=== PATIENT | female | born 1940 | race African-American/Black ===

== ENCOUNTER → 2016-06-07 | Outpatient (CLI) | payer BC ==
--- NOTE | 2016-06-07 09:52 | KCIC ---
PROCEDURE DEXA. HISTORY Postmenopausal screening. COMPARISON None. FINDINGS BMD: (g/cm2) - AP Spine Total (L1-L4): 1.168 - Total left Hip: 0.975 T-Score: - AP Spine Total (L1-L4): 1.1 - Total left Hip: 0.3 Z-Score: - AP Spine Total (L1-L4): 2.7 - Total left Hip: 0.9 World Health Organization criteria for BMD interpretation classify patients as Normal (T-score at or above -1.0), Osteopenic (T-score between -1.0 and -2.5), or Osteoporotic (T-score at or below -2.5). IMPRESSION Normal bone mineral density in the left hip and spine. Electronically signed by: Jose Johnson MD (Jun 07, 2016 09:50:56)
== END | disposition home or self-care (01) ==
LOC: KCIC DEXA 08:38
PROVIDERS: ATTEND Family Medicine
DX: M85.88 Other specified disorders of bone density and structure, other site (principal); Z78.0 Asymptomatic menopausal state
CPT/HCPCS: 77080

== ENCOUNTER → 2016-06-11 | Outpatient (CLI) | payer BC | END | disposition home or self-care (01) | LOC: KCIC MAMMO 08:22 | PROVIDERS: ATTEND Family Medicine | DX: Z12.31 Encounter for screening mammogram for malignant neoplasm of breast (principal) | CPT/HCPCS: G0202; 77067 ==

== ENCOUNTER → 2016-07-03 | Outpatient (CLI) | payer BC ==
--- NOTE | 2016-07-03 10:06 | KCIC ---
PROCEDURE PA and lateral chest radiographs 07/03/2016 HISTORY Cough. FINDINGS PA and lateral digital radiographs of the chest were obtained. The cardiac silhouette is mildly enlarged. The thoracic aorta is tortuous. Atherosclerotic calcification of the thoracic aorta is seen. A 3 millimeter calcified granuloma is seen involving the left lower lobe. No acute pulmonary infiltrate is noted. No pneumothorax or pleural effusion is seen. Degenerative changes are seen involving the thoracic spine and both shoulders. IMPRESSION Mild cardiomegaly. No acute pulmonary infiltrate is seen. Electronically signed by: Frnak Rucker MD (July 03, 2016 10:05:39)
== END | disposition home or self-care (01) ==
LOC: KCIC 09:10
PROVIDERS: ATTEND Family Medicine
DX: I51.7 Cardiomegaly (principal)
CPT/HCPCS: 71020

== ENCOUNTER → 2017-02-26 | Outpatient (CLI) | payer BC | END | disposition home or self-care (01) | LOC: KCIC 12:53 | DX: M19.012 Primary osteoarthritis, left shoulder (principal) | CPT/HCPCS: 73030 ==

== ENCOUNTER → 2017-07-03 | Outpatient (CLI) | payer BC | END | disposition home or self-care (01) | LOC: KCIC MAMMO 07:44 | DX: Z12.31 Encounter for screening mammogram for malignant neoplasm of breast (principal) | CPT/HCPCS: 77067 ==

== ENCOUNTER → 2018-03-19 | Outpatient (CLI) | payer BC ==
--- NOTE | 2018-03-19 13:59 | KCIC ---
Chest radiograph 03/19/2018 12:00 AM INDICATION: Cough, hypertension COMPARISON: July 03, 2016 TECHNIQUE: Frontal and lateral views of the chest are provided. FINDINGS: The cardiomediastinal silhouette is within normal limits. There are no pleural effusions. There is no pulmonary vascular congestion. There is no pneumothorax. The lungs are clear. Mild bronchial wall thickening suggestive of bronchitis. No significant osseous abnormality is identified. IMPRESSION: Bronchitis without focal airspace consolidation. Electronically signed by: Bebe Whitmore MD (03/19/2018 1:54 PM) [facility]
== END | disposition home or self-care (01) ==
LOC: KCIC 12:41
PROVIDERS: ATTEND Family Medicine
DX: J40 Bronchitis, not specified as acute or chronic (principal); I10 Essential (primary) hypertension
CPT/HCPCS: 71046

== ENCOUNTER → 2018-05-12 | Outpatient (CLI) | payer BC ==
--- NOTE | 2018-05-12 13:34 | KCIC ---
CT CHEST WO CONTRAST Indication: Persistent cough. Cough for about one month, sometimes productive. Some wheezing. Exposure: One or more of the following individualized dose reduction techniques were utilized for this examination: 1. Automated exposure control 2. Adjustment of the mA and/or kV according to patient size 3. Use of iterative reconstruction technique. Technique: Standard imaging without intravenous contrast. No prior study for comparison. Correlation with chest x-ray March 19, 2018. Hypodense nodule in the left thyroid gland measures 15 mm. No significantly enlarged lymph nodes. No pericardial effusion. No pleural effusion. Small noncalcified pulmonary nodule in the inferior and lateral aspect of the left upper lobe measures 3 to 4 mm. Coronal series 4, image 25. Calcified nodule in the more anterior left upper lobe compatible with granuloma, with some adjacent linear atelectasis or fibrosis. No evidence of consolidating infiltrate. Trachea and mainstem bronchi are patent. Degenerative spondylosis. Vertebral body height and alignment are intact. No destructive bone lesion. IMPRESSION: 1. Left thyroid nodule measuring 15 mm. Thyroid ultrasound could further evaluate. 2. Small noncalcified left upper lobe pulmonary nodule measures 4 mm. As per Fleischner 2017 guidelines, no follow-up necessary if patient is low risk. If high risk, consider follow-up CT chest in 12 months. Electronically signed by: Jh Lemons MD (05/12/2018 1:32 PM) [facility]
== END | disposition home or self-care (01) ==
LOC: KCIC CT 10:21
PROVIDERS: ATTEND Family Medicine
DX: J98.11 Atelectasis (principal); E04.1 Nontoxic single thyroid nodule; M47.814 Spondylosis without myelopathy or radiculopathy, thoracic region; R91.1 Solitary pulmonary nodule; R93.89 Abnormal findings on diagnostic imaging of other specified body structures
CPT/HCPCS: 71250

== ENCOUNTER → 2018-05-19 | Outpatient (CLI) | payer BC ==
--- NOTE | 2018-05-19 16:25 | KCIC ---
THYROID ULTRASOUND History: Left thyroid nodule seen on CT scan Comparison: CT chest exam May 12, 2018. Findings: Multiple sonographic images of the thyroid gland are submitted. Right lobe measured 4.5 x 1.9 x 2.2 cm. Left lobe measured 4.2 x 1.8 x 2 cm. There is a small hypoechoic probable cyst of the inferior right gland up to 0.6 x 0.5 x 0.3 cm. There is a solid-appearing slightly heterogeneous nodule of the superior right gland about 0.7 x 0.6 x 0.6 cm, mild associated internal vascularity on color Doppler imaging. There is a large heterogeneous nodule of the mid to inferior left gland, foci of internal minimal cystic change. This measures up to 2.5 x 2.2 x 1.6 cm in size, mild internal vascularity color Doppler imaging. There is a small hypoechoic lesion of the superior left gland about 0.3 x 0.2 x 0.3 cm in size. There is also hypoechoic lesion of the isthmus about 0.5 x 0.2 x 0.7 cm, no internal vascularity on color Doppler imaging. Impression: 1. There are bilateral thyroid nodules, largest inferiorly on the left up to 2.5 cm, no previous older exams to evaluate for change in size. Electronically signed by: Sadiq Alfaro MD (05/19/2018 4:22 PM) [facility]-KCIC1
== END | disposition home or self-care (01) ==
LOC: KCIC US 13:30
PROVIDERS: ATTEND Family Medicine
DX: E04.2 Nontoxic multinodular goiter (principal)
CPT/HCPCS: 76536

== ENCOUNTER → 2018-07-16 | Outpatient (CLI) | payer BC ==
--- NOTE | 2018-07-16 13:45 | KCIC ---
BILATERAL SCREENING MAMMOGRAM History: Routine screening. Comparison: Bilateral mammogram July 03, 2017 and dating back to 2015. Technique: Routine bilateral digital mammogram views were obtained. Findings: Breast Tissue Density A : The breasts are almost entirely fatty. A few benign calcifications are redemonstrated bilaterally. There are no dominant masses, suspicious microcalcifications, or architectural distortion. IMPRESSION: No mammographic evidence of malignancy. Recommend routine screening. BI-RADS category 1: Negative. The images were reviewed with computer aided detection. Patient information is entered into the reminder system with a target due date for the next screening mammogram. Mammography is the most sensitive method for finding small breast cancers, but it does not detect them all and is not a substitute for careful clinical examination. A negative mammogram does not negate a clinically suspicious finding and should not result in delay in biopsying a clinically suspicious abnormality. "Our facility is accredited by the [employer] Mammography Program." Electronically signed by: Caleb Deal MD (07/16/2018 1:42 PM) [id number]
== END | disposition home or self-care (01) ==
LOC: KCIC MAMMO 08:00
PROVIDERS: ATTEND Family Medicine
DX: Z12.31 Encounter for screening mammogram for malignant neoplasm of breast (principal); N64.89 Other specified disorders of breast
CPT/HCPCS: 77067

== ENCOUNTER → 2018-11-30 | Outpatient (CLI) | payer BC ==
--- NOTE | 2018-11-30 08:12 | RAD ---
THYROID ULTRASOUND History: Thyroid nodules Comparison: May 19, 2018 Findings: Multiple sonographic images of the thyroid gland are submitted. Right lobe measured 4.2 x 1.8 x 2.1 cm. Left lobe measured 4.2 x 1.8 x 1.9 cm. There is a small hypoechoic cystic lesion of the left isthmus of the thyroid gland about 0.9 x 0.5 x 0.3 cm. There is similar heterogeneous partially solid and cystic nodule of the mid to inferior left gland about 2.6 x 2.3 x 1.7 cm with associated calcifications and internal vascularity on color Doppler imaging (previously about 2.5 x 2.2 x 1.6 cm). There is a larger heterogeneous partially solid and cystic lesion of the superior left gland not associated with significant internal vascularity color Doppler imaging, measuring about 0.8 x 0.9 x 0.6 cm (previously about 0.3 x 0.2 x 0.3 cm). There is again fairly similar hypoechoic, cystic lesion of the inferior right gland without internal vascularity on color Doppler imaging about 0.7 x 0.4 x 0.4 cm (previously about 0.6 x 0.5 x 0.3 cm). There is a heterogeneous nodule of the superior right gland with internal vascularity on color Doppler imaging measuring about 0.7 x 0.5 x 0.5 cm overall unchanged. No new thyroid nodularity is demonstrated. Impression: 1. There are again bilateral thyroid nodules, dominant nodule of the inferior left gland stable. Small nodule of the superior left gland is larger in interval although not associated with significant internal vascularity on color Doppler imaging. No new thyroid nodularity is demonstrated. Electronically signed by: Sadiq Alfaro MD (11/30/2018 8:09 AM) [facility]-[email or web address]
== END | disposition home or self-care (01) ==
LOC: US 07:05
PROVIDERS: ATTEND Specialist
DX: E04.2 Nontoxic multinodular goiter (principal)
CPT/HCPCS: 76536

== ENCOUNTER → 2019-08-10 | Outpatient (CLI) | payer BC ==
--- NOTE | 2019-08-10 10:12 | KCIC ---
EXAM: Dual energy x-ray absorptiometry (DEXA). HISTORY: Postmenopausal female presents for osteoporosis screening. COMPARISON: 06/07/2016. TECHNIQUE: Dual energy x-ray absorptiometry of the lumbar spine and left hip was performed. Calculation of bone mineral density based on standard deviations above or below the expected young adult normal value (T-score) was completed. FINDINGS: The average bone mineral density in the 1st through 4th lumbar vertebrae is 1.167 g/cmxcm, corresponding with a T-score of 1.1. There has been a 0.1 percent decrease in density of the lumbar spine compared to the prior study. The average total bone mineral density in the left is 0.960 g/cmxcm, corresponding with a T-score of 0.1. There has been a 1.6 percent decrease in density of the left hip compared to the prior study. IMPRESSION: Normal bone mineral density. Note: Definitions established by the World Health Organization: 1. Normal: T-score is -1.0 or above. 2. Osteopenia: T-score is between -1.0 and -2.5 . 3. Osteoporosis: T-score is -2.5 or below. Electronically signed by: Rhina Lopez MD (08/10/2019 10:09 AM) [id number]
--- NOTE | 2019-08-10 14:39 | KCIC ---
Bilateral digital screening mammograms: Reason for examination: Routine screening. Comparison is made to previous studies dated back to 06/11/2016. Interpretation was made with the benefit of CAD. The skin and nipples show no abnormalities. No abnormal axillary lymph nodes are seen. The breast parenchyma shows scattered fibroglandular density. (Breast density: Category B.) There is parenchymal scar is again seen posterior centrally in the left breast on cc view. There are no new dominant masses, suspicious calcifications or architectural distortions. Some benign calcifications are present. Impression: No evidence of malignancy. Recommend routine screening. BI-RADS category 2: Benign "Our facility is accredited by the [employer] Mammography Program." This patient's information has been entered into a reminder system for the patient to be notified with the results of her examination and a target date for the next mammogram. Electronically signed by: Elizabeth Jauregui MD (08/10/2019 2:36 PM) [id number]
== END | disposition home or self-care (01) ==
LOC: KCIC DEXA 09:19
PROVIDERS: ATTEND Family Medicine
DX: Z12.31 Encounter for screening mammogram for malignant neoplasm of breast (principal); M85.88 Other specified disorders of bone density and structure, other site; M47.896 Other spondylosis, lumbar region; N64.89 Other specified disorders of breast
CPT/HCPCS: 77067; 77080

== ENCOUNTER → 2019-10-21 | Outpatient (CLI) | payer BC ==
[2019-10-21 11:44] LABS: BASO # 0.1 x10^3/uL (0.0-0.2); BASO % 1 % (0-3); EOS # 0.2 x10^3/uL (0.0-0.7); EOS % 6 % (0-3); HEMATOCRIT 44.8 % (36.0-47.0); HEMOGLOBIN 14.9 g/dL (12.0-15.5); LYMPH # 1.9 x10^3/uL (1.0-4.8); LYMPH % 45 % (24-48); MEAN CORPUSCULAR HEMOGLOBIN 30 pg (25-35); MEAN CORPUSCULAR HGB CONC 33 g/dL (31-37); MEAN CORPUSCULAR VOLUME 91 fL (79-100); MONO # 0.5 x10^3/uL (0.0-1.1); MONO % 12 % (0-9); NEUT # 1.5 x10^3/uL (1.8-7.7); NEUT % 36 % (31-73); PLATELET COUNT 216 x10^3/uL (140-400); RED BLOOD COUNT 4.95 x10^6/uL (3.50-5.40); RED CELL DISTRIBUTION WIDTH 14.8 % (11.5-14.5); WHITE BLOOD COUNT 4.2 x10^3/uL (4.0-11.0)
[2019-10-21 12:09] LABS: ALBUMIN 3.2 g/dL (3.4-5.0); ALBUMIN/GLOBULIN RATIO 0.8 (1.0-1.7); CALCIUM 8.4 mg/dL (8.5-10.1); CREATININE 0.8 mg/dL (0.6-1.0); GFR 84.2; POTASSIUM 4.1 mmol/L (3.5-5.1); TOTAL BILIRUBIN 0.4 mg/dL (0.2-1.0); TOTAL PROTEIN 7.2 g/dL (6.4-8.2)
[2019-10-21 17:09] LABS: THYROXINE 6.1 ug/dL (4.5-12.0)
--- NOTE | 2019-10-21 17:19 | RAD ---
Thyroid ultrasound: Reason for examination: Follow-up nodules. Comparison is made to previous study dated 11/30/2018. The right lobe of the thyroid gland measures 3.8 x 1.8 x 0.8 cm in greatest dimensions. There is a small 7.1 x 5.2 mm nodule superiorly in the right lobe previously measuring 6.1 x 7.3 x 5.5 mm in size. There is also a 8 x 6.7 mm heterogeneous nodule inferiorly in the right lobe previously measuring 5.8 x 4.6 x 2.8 mm in size. The left lobe of the thyroid gland measures 4.4 x 1.9 x 2.3 cm in greatest dimensions. There is heterogeneous with a 2.5 x 2 x 2.3 cm heterogeneous nodule in the inferior aspect of the left lobe previously measuring 2.5 x 2.2 x 1.6 cm in size. There is also a small 3.1 x 2.8 x 2.8 mm nodule in the superior left lobe previously measuring 2.9 x 2.2 x 3.1 mm in size. The isthmus measures 3.3 mm in thickness and in the left side of isthmus there is a 5.7 x 8.8 x 5.6 cm cystic lesion previously measuring 7.3 x 4.8 x 2.4 mm in size. IMPRESSION: Bilateral thyroid nodules with the dominant nodule in the inferior left lobe of the gland measuring approximately 2.5 cm in greatest dimension but showing minimal enlargement. The additional nodules in the thyroid gland also show some mild enlargement. Electronically signed by: Elizabeth Jauregui MD (10/21/2019 5:16 PM) [facility]
== END | disposition home or self-care (01) ==
LOC: US 11:07
PROVIDERS: ATTEND Specialist
DX: E04.2 Nontoxic multinodular goiter (principal)
CPT/HCPCS: 36415; 76536; 80053; 84436; 84443; 84480; 85025

== ENCOUNTER → 2019-12-24 | Outpatient (CLI) | payer BC ==
--- NOTE | 2019-12-24 11:16 | RAD ---
EXAM: Left thyroid fine-needle aspiration. HISTORY: Thyroid nodule. TECHNIQUE: The risks of the procedure discussed with the patient and written and consent was obtained. A timeout was performed. Sonographic imaging of the thyroid was performed and the lesion of concern within the inferior pole the left thyroid lobe was identified. This is 2.5 cm. The skin in this location was sterilely prepped, draped and infiltrated with 1 percent lidocaine. Multiple passes were obtained through the nodule with a 25-gauge needle using sonographic guidance. The aspirate was submitted to the department of pathology for analysis. A sterile measures placed. The patient tolerated the procedure without complication. IMPRESSION: Sonographic guided fine-needle aspiration of a dominant nodule within the inferior left thyroid lobe. An addendum to this report will be submitted when pathology results are available. Electronically signed by: Rhina Lopez MD (12/24/2019 11:13 AM) [id number]
--- NOTE | 2019-12-28 13:11 | PATHOLOGY ---
Note [facility] Accession Number: [id number] TESTS RESULT FLAG UNITS REF RANGE LAB Clinician Provided Cytology Information No. of containers..01 Other (Miscellaneous) Source: LT INFERIOR THYROID DIAGNOSIS: LT INFERIOR THYROID NEGATIVE FOR MALIGNANT CELLS. [place] CATEGORY II. SPECIMEN CONSISTS OF BENIGN FOLLICULAR CELLS, HEMOSIDERIN-LADEN MACROPHAGES, COLLOID, AND BLOOD. THIS PATTERN IS CONSISTENT WITH A BENIGN FOLLICULAR NODULE. THIS INTERPRETATION INCLUDES EVALUATION OF A CELL BLOCK. VERY PAUCICELLULAR SPECIMEN WITH RARE FOLLICULAR CELLS, SCANT COLLOID AND RARE / OCCASIONAL HISTIOCYTES. NO CLASSIC CYTOLOGIC FEATURES OF PAPILLARY CARCINOMA ARE IDENTIFIED. 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 CLINICAL AND RADIOGRAPHIC CORRELATION IS RECOMMENDED. THE CASE IS CO-REVIEWED WT DR. TANVI JEAN BAPTISTE. Pathologist ICD10: 02 E04.1 Signed out by: Audrey Cornell MD, Pathologist NPI- [id number] Performed by: Astrid Zamora, Policy Service Coordinator ([facility]) Gross description: 30ML, CLEAR COLORLESS, 2FX 2AD 2H /LCS 12/24/2019 1736 Local FLAG LEGEND: L-Low Normal,H-High Normal,LL-Alert Low,HH-Alert High <-Panic Low,>-Panic High,A-Abnormal,AA-Critical Abnormal Performed at: [facility] [address] [place] [address] Pavel Vo MD, [address] [place] [address] [facility] [address] [address] Natalie Bustamante MD, Specimen Comment: A courtesy copy of this report has been sent to [phone], [phone] Specimen Comment: [id number] Specimen Comment: [id number] Specimen Comment: Report sent to DR SANCHES / DR GOLDMAN Performed at: [address] [facility] [id number] [facility] [address], [place], [place] [id number] MD Pavel Vo MD Phone: [phone]
== END | disposition home or self-care (01) ==
LOC: US 13:10
PROVIDERS: ATTEND Specialist
DX: E04.1 Nontoxic single thyroid nodule (principal); Z79.899 Other long term (current) drug therapy
CPT/HCPCS: 10005; 60300; 76942; 88173; 88305

== ENCOUNTER → 2020-09-11 | Outpatient (CLI) | payer BC ==
--- NOTE | 2020-09-11 12:00 | KCIC ---
EXAM: Bilateral screening mammogram. HISTORY: 80-year-old female presents for screening mammography. TECHNIQUE: Full-field digital craniocaudal and mediolateral oblique views of both breasts are obtaine d for evaluation. Computer aided detection was applied. COMPARISON: 08/10/2019 BREAST PARENCHYMAL DENSITY: Level B - Scattered fibroglandular densities. FINDINGS: There is no new suspicious mass, microcalcification or region of architectural distortion. IMPRESSION: BI-RADS Category 2: Benign finding(s). RECOMMENDATION: Annual mammography is recommended. If your mammogram demonstrates that you have dense breast tissue, which could hide abnormalities, and if you have other risk factors for breast cancer that have been identified, you might benefit from s upplemental screening tests that may be suggested by your ordering physician. Dense breast tissue, i n and of itself, is a relatively common condition. This information is not provided to cause undue c oncern, but rather to raise your awareness and to promote discussion with your physician regarding th e presence of other risk factors, in addition to dense breast tissue. A report of your mammography re sults will be sent to you and your physician. You should contact your physician if you have any ques tions or concerns regarding this report. Mammography is a sensitive method for finding small breast cancers, but it does not detect them all a nd is not a substitute for careful clinical examination. A negative mammogram does not negate a clin ically suspicious finding and should not result in delay in biopsying a clinically suspicious abnorma lity. PQRS compliance statement - Patient information was entered into a reminder system with a target due date for the next mammogram. "Our facility is accredited by the [employer] Mammography Program." Electronically signed by: Rhina Lopez MD (09/11/2020 11:58 AM) [email or web address]
== END ==
LOC: KCIC MAMMO 08:09
PROVIDERS: ATTEND Internal Medicine
DX: Z12.31 Encounter for screening mammogram for malignant neoplasm of breast (principal)
CPT/HCPCS: 77067

== ENCOUNTER → 2020-12-06 | Outpatient (CLI) | payer BC ==
--- NOTE | 2020-12-07 13:19 | SLEEP ---
DATE OF STUDY: 12/06/2020 HOME POLYSOMNOGRAM REPORT OBJECTIVE: The patient is a 80-year-old female who has awaken with choking sensations, rule out sleep apnea. She also has excessive somnolence and snoring. Height 63 inches, weight 213 pounds, body mass index 37.7. [place] sleep score 9. INTERPRETATION: There are a total of 145 respiratory events for an apnea-hypopnea index of 17 events per hour of sleep. The minimum oxygen saturation is 72%. No significant cardiac arrhythmias are observed. IMPRESSION: This home sleep study is abnormal because of the presence of sleep apnea, mostly obstructive as well as hypopneas. RECOMMENDATIONS: 1. The patient should either have an in-lab CPAP titration study or could be set up as an outpatient on variable CPAP. 2. She should pursue weight loss and avoid sedatives and alcohol. Thank you for letting us help with the patient's care. MAYO/FADY DR: Jacob TID: [id number] CC: ALFRED VILLA MD
== END ==
LOC: RT 09:01
PROVIDERS: ATTEND Internal Medicine
DX: G47.30 Sleep apnea, unspecified (principal)
CPT/HCPCS: G0399

== ENCOUNTER → 2020-12-13 | Outpatient (CLI) | payer BC ==
--- NOTE | 2020-12-13 10:55 | RAD ---
EXAM: Thyroid sonogram. HISTORY: Thyroid nodule. TECHNIQUE: Sonographic imaging of the thyroid was performed. COMPARISON: 12/24/2019, 10/21/2019. FINDINGS: The right thyroid lobe measures 4.1 x 1.2 x 2.0 cm. The left thyroid lobe measures 4.4 x 1. 9 x 1.9 cm. The isthmus measures 2.6 mm in thickness. There is diffusely heterogeneous thyroid parenc hyma. There are multiple nodules, described below. There is a dominant solid hypoechoic nodule with internal echogenic foci likely due to microcalcifica tion within the inferior left thyroid lobe measuring 2.9 x 2.3 x 1.9 cm. The second largest nodule is solid and predominantly isoechoic within the superior right thyroid lobe measuring 8 x 6 x 6 mm. There is a mixed solid and cystic nodule along the inferior right thyroid lo be measuring 7 x 7 x 4 mm. There is a suspected colloid cyst along the left aspect of the thyroid ist hmus measuring 11 x 7 x 5 mm. There are few additional tiny less than 5 mm nodules and cysts. IMPRESSION: 1. 2.9 cm dominant left thyroid nodule. TI-RADS Category 4. This measured 2.5 cm in maximum dimension on a sonogram performed 10/21/2019. Correlate with pathology findings corresponding with fine-needle a spiration of this lesion performed 12/24/2019. 2. Multiple small additional nodules and cysts. The largest solid nodule is seen within the right thy roid lobe measuring 8 mm in maximum dimension. TI-RADS Category 3. This is minimally changed compared to the exam performed 10/21/2019. The stability, size and multiplicity of these lesions favors benigni ty. Electronically signed by: Rhina Lopez MD (12/13/2020 10:53 AM) [id number]
[2020-12-14 14:30] LABS: THYROXINE 6.3 ug/dL (4.5-12.0)
== END ==
LOC: US 10:19
PROVIDERS: ATTEND Specialist
DX: E04.2 Nontoxic multinodular goiter (principal)
CPT/HCPCS: 36415; 76536; 84436; 84443; 84480

== ENCOUNTER → 2021-02-12 | Outpatient (CLI) | payer BC ==
--- NOTE | 2021-02-12 15:23 | RAD ---
EXAM: Soft tissue ultrasound, left knee and calf. HISTORY: Left posterior knee and calf pain. COMPARISON: None. FINDINGS: Sonographic evaluation of the left popliteal region and posterior calf was performed. There is no popliteal cyst or other fluid collection. No muscular injury is identified. IMPRESSION: 1. No sonographic abnormality is appreciated at the site of concern. Recommend ongoing follow-up of p atient symptoms. Electronically signed by: Francesco Tatum MD (02/12/2021 3:20 PM) [id number]
== END ==
LOC: US 11:44
PROVIDERS: ATTEND Internal Medicine
DX: M25.562 Pain in left knee (principal); M79.662 Pain in left lower leg; M71.20 Synovial cyst of popliteal space [Baker], unspecified knee
CPT/HCPCS: 76881